=== PATIENT | female | born 1945 | race Caucasian/White ===

== ENCOUNTER 2016-07-20 06:32 | Emergency (ER) | payer OTHER ==
[~2016-07-20] VITALS: Ht 152.4 cm; Wt 80.6 kg
[~2016-07-20 06:32] MED LIST: BENTYL20 MG PO; CIPRO500 MG PO; CITRACAL + D E1 EACH PO; CLEOCIN300 MG PO; FLAGYL500 MG PO; FLORASTOR250 MG PO; LORTAB 5-325 M1 EACH PO; POTASSIUM CHLO10 ME3 PO; PROMETHAZINE HC25 M1 PO; TYLENOL WITH C1 EACH PO; ZESTORETIC 20-1 EAC1 NG
[2016-07-20 07:29] LABS: ADD MIUA? YES; BILIRUBIN NEGATIVE; BLOOD MODERATE; COLOR YELLOW ((YELLOW)); GLUCOSE (STRIP) NEGATIVE; KETONES NEGATIVE; LEUKOCYTES TRACE; NITRITE NEGATIVE; PROTEIN (STRIP) NEGATIVE; SPECIFIC GRAVITY 1.017 (1.000-1.030); UROBILINOGEN 0.2 MG/DL (0.2-1.0)
[2016-07-20 07:35] LABS: HEMATOCRIT 40.3 % (36.0-46.0); MCH 27.7 PG (29.0-34.0); MCHC 32.8 G/DL (30.0-36.0); MCV 84.7 FL (83-99); MEAN PLAT.VOLUME 9.1 uM^3 (9.5-12.4); PLATELET COUNT 273 K/uL (156-360); RBC DIS.WIDTH-CV 13.4 % (11.8-14.6); RBC DIS.WIDTH-SD 41.1 % (39-53); RED BLOOD COUNT 4.76 M/uL (3.80-5.20); WHITE BLOOD COUNT 9.9 K/uL (4.1-10.2)
[2016-07-20 07:39] LABS: BACTERIA RARE /HPF; EPITHELIAL CELLS RARE /HPF; HYALINE CASTS 0-5 /LPF; MUCUS TRACE /LPF; RED BLOOD CELLS 0-5 /HPF (0-5); UCUL ADDED? NO; WHITE BLOOD CELLS 0-5 /HPF (0-5)
[2016-07-20 07:59] LABS: ANION GAP 12 MEQ/L (2-14); CHLORIDE 101 MEQ/L (99-109); POTASSIUM 3.8 MEQ/L (3.7-5.4); SAMPLE HEMOLYSIS CHECK 0; SAMPLE ICTERIC CHECK 0; SAMPLE LIPEMIA CHECK 0; SODIUM 139 MEQ/L (136-147); TOTAL BILIRUBIN 0.9 MG/DL (0.0-1.0)
[2016-07-20 08:05] LABS: ALKALINE PHOSPHATASE 80 IU/L (3-129); GFR ESTIMATE (CALCULATED) > 59 mL/min/; GLUCOSE 110 mg/dL (70-99); UREA NITROGEN (BUN) 17 mg/dL (9-23)
[2016-07-20] MEDS ORDERED: LEVAQUIN750 MG PO (09:59)
[2016-07-20] MEDS ORDERED: FLAGYL500 MG PO (09:59)
[2016-07-20] MEDS ORDERED: ZOFRAN4 MG PO (09:59)
[2016-07-20 10:20] VITALS: BP 147/88
== END 2016-07-20 10:23 | disposition home or self-care (01) ==
LOC: EME 06:32
DX: K57.92 Diverticulitis of intestine, part unspecified, without perforation or abscess without bleeding (principal); I10 Essential (primary) hypertension
CPT/HCPCS: 74177; 80053; 81003; 85027; 99281; 99285; J7030

== ENCOUNTER → 2017-10-04 | Outpatient (CLI) | payer OTHER ==
[~2017-10-04] MED LIST changes: +LEVAQUIN750 MG PO; +ZOFRAN4 MG PO
== END | disposition home or self-care (01) ==
DX: M17.11 Unilateral primary osteoarthritis, right knee (principal); R26.2 Difficulty in walking, not elsewhere classified; M25.561 Pain in right knee; M25.661 Stiffness of right knee, not elsewhere classified; M62.81 Muscle weakness (generalized); Z74.1 Need for assistance with personal care
CPT/HCPCS: 97161 GP; 97165 GO; 97530 GP; 97535 GO; G8978 GP; G8979 GP; G8980 GP; G8984 GO; G8985 GO; G8986 GO

== ENCOUNTER 2017-11-06 20:51 | Inpatient (IN) | payer OTHER ==
[~2017-11-06] VITALS: Ht 152.4 cm; Wt 84.1 kg
[~2017-11-06 20:51] MED LIST changes: +ONE DAILY TABL1 EACH PO; +TOPROL XL25 MG PO
[2017-11-07 11:57] VITALS: BP 125/60
[2017-11-07 16:25] LABS: HEMATOCRIT 37.8 % (36.0-46.0); HEMOGLOBIN 12.3 G/DL (11.9-15.5); MCH 27.8 PG (29.0-34.0); MCHC 32.5 G/DL (30.0-36.0); MCV 85.5 FL (83-99); PLATELET COUNT 254 K/uL (156-360); RBC DIS.WIDTH-CV 13.3 % (11.8-14.6); RBC DIS.WIDTH-SD 42.1 % (39-53); RED BLOOD COUNT 4.42 M/uL (3.80-5.20); WHITE BLOOD COUNT 10.5 K/uL (4.1-10.2)
[2017-11-07 17:41] VITALS: BP 116/56
[2017-11-07 19:33] VITALS: BP 108/56
[2017-11-08 00:03] VITALS: BP 102/59
[2017-11-08 04:26] VITALS: BP 107/56
[2017-11-08 05:59] LABS: HEMOGLOBIN 11.8 G/DL (11.9-15.5); MCV 86.5 FL (83-99)
[2017-11-08 06:22] LABS: CHLORIDE 104 MEQ/L (99-109); CREATININE 0.9 MG/DL (0.6-1.3); GFR ESTIMATE (CALCULATED) > 59 mL/min/; GLUCOSE 154 mg/dL (70-99); POTASSIUM 4.4 MEQ/L (3.7-5.4); SODIUM 140 MEQ/L (136-147); UREA NITROGEN (BUN) 18 mg/dL (9-23)
[2017-11-08 08:27] VITALS: BP 104/50; BP 150/70
[2017-11-08 12:30] VITALS: BP 108/55
[2017-11-08 15:46] VITALS: BP 108/55
[2017-11-08 23:09] VITALS: BP 122/60
[2017-11-09 05:47] LABS: HEMATOCRIT 34.4 % (36.0-46.0); HEMOGLOBIN 11.3 G/DL (11.9-15.5); MCV 86.2 FL (83-99)
[2017-11-09 08:11] VITALS: BP 139/60
[2017-11-09] MEDS ORDERED: SENNA PLUS TAB1 EACH PO (08:56)
[2017-11-09] MEDS ORDERED: OXYCODONE HCL5 MG PO (08:57)
[2017-11-09] MEDS ORDERED: CELECOXIB200 MG PO (08:57)
[2017-11-09] MEDS ORDERED: LOVENOX40 MG/0.4 SC (08:57)
[2017-11-09] MEDS ORDERED: ONDANSETRON ODT4 MG PO (08:57)
== END 2017-11-09 15:20 | disposition home or self-care (01) | DRG 470 ==
LOC: ENRESERV 20:51 → 2SOUTH 11-07 11:02 → SDC 11-07 15:22 → ENRESERV 11-07 15:29 → EDSTATUS 11-07 15:46 → 2SOUTH 11-07 15:48 → 3EAST 11-07 17:10
PROVIDERS: Orthopaedic Surgery
PROC: 0SRC0J9 Replacement of Right Knee Joint with Synthetic Substitute, Cemented, Open Approach (ICD-10-PCS; principal; 2017-11-07)
DX: M17.11 Unilateral primary osteoarthritis, right knee (principal); I10 Essential (primary) hypertension; Z90.710 Acquired absence of both cervix and uterus; Z80.0 Family history of malignant neoplasm of digestive organs
CPT/HCPCS: 73560; 80048; 85014; 85018; 85027; C1713; J0690; J1100; J1170; J1650; J2250; J2405; J2765; J2795; J3010; J7030; J7050; S0020